=== PATIENT | female | born 1980 | race Caucasian/White ===

== ENCOUNTER 2017-02-01 00:19 | Emergency (ER) | payer SELFPAY ==
[2017-02-01 00:44] LABS: Hematocrit 43.7 % (37.0-47.0); Hemoglobin 15.3 gm/dL (12.5-16.0); Mean Cell Volume 79.3 fl (78-100); Mean Corpuscular Hemoglobin 27.8 pg (27-31); Mean Platelet Volume 8.4 fl (6.0-9.5); Neutrophil # 11.7 K/mm3 (1.3-6.0); Platelet Count 287 K/mm3 (150-450); Red Blood Count 5.51 M/mm3 (4.2-5.4); Red Cell Distribution Width 13.9 % (11.5-14.0); White Blood Count 13.8 K/mm3 (4.0-10.5)
[2017-02-01 00:48] LABS: Urine Bilirubin Negative (NEGATIVE); Urine Ketone 50 mg/dL (NEGATIVE); Urine Nitrite Negative (NEGATIVE); Urine Protein Negative (NEGATIVE); Urine Specific Gravity 1.015 SP.GR. (1.005-1.010); Urine Urobilinogen Normal (NORMAL)
[2017-02-01 00:57] LABS: Anion Gap 14.9 mmol/L (6.8-13.8); BUN/Creatinine Ratio 18.6 (9.0-21.6); Bilirubin, Total 1.5 mg/dL (0.0-1.1); Ca. Corrected For Albumin 8.8 mg/dL (8.4-10.2); Calcium * 9.1 mg/dL (7.9-10.9); Carbon Dioxide 25.8 mmol/L (24-32.6); Potassium 3.7 mmol/L (3.4-4.6)
[2017-02-01] MEDS ORDERED: ONDANSETRON HCL/PF 2 MG/ML VIAL IV ONE ×2 (01:01→02:26)
[2017-02-01 01:02] LABS: Urine Blood 5 /ul (NEGATIVE)
[2017-02-01] MEDS ORDERED: KETOROLAC TROMETHAMINE 30 MG/ML VIAL IV ONE (01:02)
[2017-02-01 01:03] LABS: Urine Appearance Clear; Urine Bacteria None Seen; Urine Color Yellow; Urine RBC None Seen /hpf (0-5); Urine WBC 0-5 /hpf (0-5)
--- NOTE | 2017-02-01 01:03 | ERNOTE ---
Abdominal HPI - General Chief Complaint: Abdominal Pain Time Seen by Provider: 02/01/17 00:56 Source: patient Exam Limitations: no limitations - Immun/Allergies/Home Medications Immunizatons: IMMUNIZATION HX Immunizations Up to Date Yes History of Influenza Vaccine Yes Hx Pneumococcal Vaccination No Allergies/Adverse Reactions: Allergies Penicillins Allergy (Verified 02/01/17 00:29) Home Medications: HOME MEDICATIONS Ciprofloxacin HCl [Cipro] 500 mg PO BID #10 tab 02/01/17 [Last Taken Unknown] HYDROcodone/ACETAMINOPHEN [Lorcet 5-325 mg Tablet] 1 each PO QID PRN #20 tablet 02/01/17 [Last Taken Unknown] Tamsulosin HCl [Flomax] 0.4 mg PO DAILY #5 cap.sr.24h 02/01/17 [Last Taken Unknown] - History of Present Illness Timing: getting worse Quality: severe Activities at Onset: none Associated Symptoms: Present: back pain, nausea, vomiting Review of Systems - Review of Systems Constitutional: Absent: fever, chills EYE: Present: no symptoms reported ENT: Present: no symptoms reported Respiratory: Absent: shortness of breath Cardiology: Absent: chest pain Gastrointestinal/Abdominal: Present: nausea, vomiting, diarrhea - once or twice Genitourinary: Present: frequency, dysuria, hematuria Musculoskeletal: Present: back pain Skin: Present: rash Neurological: Absent: numbness, tingling Endocrine: Present: flushing Hematologic/Lymphatic: Present: no symptoms reported Psych: Present: no symptoms reported - Patient's Past Medical History Patient History - Medical: Kidney stone Patient History - Cardiac/Respiratory: No pertinent hx Patient History - Cancer: No Hx of Cancer Patient History - Surgical Procedures: Tubal Ligation Patient History - Other: None LMP (females 10-50): 3 weeks - Social History Living Situations: spouse Psych History: No pertinent hx Smoking Status: Never smoker Have you smoked in the past 12 months: No Do you dip or chew tobacco: No Alcohol Use: rarely Drug Use: none - Immunizations Immunizations Up to Date: Yes Hx Pneumococcal Vaccination: No History of Influenza Vaccine: Yes Physical Exam - Physical Exam General Appearance: Present: wd/wn, alert, mild distress Head Exam: Present: normal inspection, no evidence of injury Neck: Present: normal inspection, nontender Respiratory: Present: no respiratory distress, normal breath sounds, no accessory muscle use, lungs clear Cardiovascular/Chest: Present: regular rate, rhythm, no murmur, normal peripheral pulses Back Exam: Present: no CVA tenderness Neurological Exam: Present: alert, no motor/sensory deficits Skin Exam: Present: normal color, warm/dry Lymphatic Exam: Present: no adenopathy ED Progress - Results and Orders Patient's Lab Results:: I have reviewed the patient's lab results. Results and Orders: Laboratory Tests 02/01/17 02/01/17 02/01/17 00:40 00:40 00:40 WBC 13.8 H Hgb 15.3 Hct 43.7 Plt Count 287 Neutrophils % 85.0 H Sodium 138 Potassium 3.7 Chloride 101 Carbon Dioxide 25.8 BUN 16 Creatinine 0.86 Random Glucose 140 H Calcium 9.1 Total Bilirubin 1.5 H AST 43 ALT 108 H Alkaline Phosphatase 116 Total Protein 8.0 Albumin 4.0 Amylase 39 Lipase 93 Urine Color Yellow Urine Appearance Clear Urine pH 8.0 H Ur Specific Bronson 1.015 Urine Protein Negative Urine Glucose (UA) Negative Urine Ketones 50 Urine Blood 5 H Urine Nitrate Negative Urine Bilirubin Negative Urine Urobilinogen Normal Ur Leukocyte Esterase Negative Urine RBC None seen Urine WBC 0-5 Ur Epithelial Cells 0-5 Urine Bacteria None seen Urine Culture Comments No culture indicated - Vital Signs Patient's Vital Signs:: I have reviewed the patient's vital signs. Vital Signs: Vital Signs 02/01/17 00:22 Temperature 36.5 C Pulse Rate 76 Respiratory 16 Rate Blood Pressure 148/95 O2 Sat by Pulse 98 Oximetry - CT/Ultrasound CT/Ultrasound Narrative: Ct abd pelvis with oral and IV contrast: High grade obstructive uropathy on the right due to a UVJ calculus measuring 3mm moderate right pelvicalyceal dilation with delay in the nephrographic and pyelographic phases of enhancement. Punctate nonobstructing intrarenal calculi on the right. Non obstructing intrarenal calculi on the left up to 5 mm hepatic steatosis normal appendix small caliber left common and external iliac veins with numerous dilated venous collaterals in the ventral lower pelvic wall. - Progress/Reassessment Chief Complaint: Abdominal Pain Progress:: Improved Progress Note-Subjective: 02/01/17 02:29 discussed with patient her elevated WBC and minimal abnormalities in her urine. Recommended CT with contrast due rule out GI as well as pathology, Pt agreed. Pain up to 7/10 again and was down to 5/10. Departure Clinical Impression: Ureteral calculus, right - Departure Disposition: Home Follow Up Needed Condition: Fair Instructions: Kidney Stones, [id number] Additional Instructions: Take pain medications as needed. Take antibiotics and other medication as scheduled. Call Dr. Jensen's office to establish care and follow up on this kidney stone. Referrals: Greg Jensen MD [Associate] - Prescriptions: Ciprofloxacin HCl [Cipro] 500 mg PO BID #10 tab HYDROcodone/ACETAMINOPHEN [Lorcet 5-325 mg Tablet] 1 each PO QID PRN #20 tablet PRN Reason: Pain Tamsulosin HCl [Flomax] 0.4 mg PO DAILY #5 cap.sr.24h
[2017-02-01] MEDS ORDERED: KETOROLAC TROMETHAMINE 30 MG/ML VIAL ONE (01:14)
[2017-02-01] MEDS ORDERED: ONDANSETRON HCL/PF 2 MG/ML VIAL ONE ×2 (01:14→02:31)
[2017-02-01] MEDS ORDERED: NALBUPHINE HCL 20 MG/ML AMPUL IV ONE (02:28)
[2017-02-01] MEDS ORDERED: DIATRIZOATE MEGLUMINE, SODIUM 30 ML BTL ONE (02:30)
[2017-02-01] MEDS ORDERED: DIATRIZOATE MEGLUMINE, SODIUM 30 ML BTL PO ONE (02:30)
[2017-02-01] MEDS ORDERED: NALBUPHINE HCL 20 MG/ML AMPUL ONE (02:31)
[2017-02-01] MEDS ORDERED: PROCHLORPERAZINE EDISYLATE 5 MG/ML VIAL IV ONE (03:13)
[2017-02-01] MEDS ORDERED: PROCHLORPERAZINE EDISYLATE 5 MG/ML VIAL ONE (03:17)
[2017-02-01] MEDS ORDERED: CIPROFLOXACIN HCL 250 MG TABLET PO ONE (05:21)
[2017-02-01] MEDS ORDERED: HYDROcodone/ACETAMINOPHEN 1 EACH TABLET PO ONE (05:21)
[2017-02-01] MEDS ORDERED: CIPROFLOXACIN HCL 250 MG TABLET ONE (05:25)
[2017-02-01] MEDS ORDERED: HYDROcodone/ACETAMINOPHEN 1 EACH TABLET ONE (05:25)
[2017-02-01] MEDS ORDERED: PROMETHAZINE HCL 25 MG/ML AMPUL IM ONE (05:38)
[2017-02-01] MEDS ORDERED: PROMETHAZINE HCL 25 MG/ML AMPUL ONE (05:40)
[2017-02-01 05:56] VITALS: BP 118/68
== END 2017-02-01 05:55 | disposition home or self-care (01) ==
LOC: ER 00:19
DX: N20.1 Calculus of ureter (principal)
CPT/HCPCS: 36415; 74177; 80053; 81001; 82150; 83690; 85025; 96372; 96374; 96375; 99284; J2405